=== PATIENT | female | born 1985 | race Caucasian/White ===

== ENCOUNTER 2017-07-11 15:28 | Emergency (ER) | payer MEDICAID, OTHER ==
[2017-07-11 15:54] VITALS: O2SAT 99
[2017-07-11 17:05] LABS: RBC URINE 2 /hpf (0-3); TRANSITIONAL EPITHIAL < 1 /hpf (0-3); URINE BACTERIA RARE (<OCC); URINE BILIRUBIN NEGATIVE (NEGATIVE); URINE BLOOD NEGATIVE (NEGATIVE); URINE COLOR Straw (YELLOW); URINE GLUCOSE (UA) 3+ mg/dL (Normal); URINE KETONE NEGATIVE (NEGATIVE); URINE LEUKOCYTE ESTERASE NEG Leu/uL (Negative); URINE PROTEIN NEGATIVE (NEGATIVE); URINE UROBILINOGEN NORMAL mg/dL (0.2-1.0); WBC URINE 2 /hpf (0-5)
--- NOTE | 2017-07-11 17:13 | C.PDOC ---
History Of Present Illness 31 year old female presents to Emergency Department for evaluation of 2 episodes of bright red blood per rectum with bowel movement. Patient reports having rectal pain when wiping. Also complaints of vaginal itching, and discharge for the past week. Notes that she missed her menstrual period this month, supposed to be on 07/02, states she had negative home test. Denies fever, nausea, vomiting, abdominal pain, or any other complaints at this time. Time Seen by Provider: 07/11/17 16:33 Chief Complaint (Nursing): GI Problem History Per: Patient History/Exam Limitations: no limitations Onset/Duration Of Symptoms: Days Current Symptoms Are (Timing): Still Present Recent travel outside of the [place]: No Additional History Per: Patient Past Medical History Reviewed: Historical Data, Nursing Documentation, Vital Signs Vital Signs: Last Vital Signs Temp 98.5 F 07/11/17 17:56 Pulse 78 07/11/17 17:56 Resp 18 07/11/17 17:56 BP 103/70 07/11/17 17:56 Pulse Ox 99 07/11/17 18:02 - Medical History PMH: Diabetes Family History: States: Unknown Family Hx - Social History Hx Tobacco Use: No Hx Alcohol Use: No Hx Substance Use: No - Immunization History Hx Tetanus Toxoid Vaccination: No Hx Influenza Vaccination: No Hx Pneumococcal Vaccination: No Review Of Systems Except As Marked, All Systems Reviewed And Found Negative. Constitutional: Negative for: Fever, Chills Cardiovascular: Negative for: Chest Pain, Light Headedness Respiratory: Negative for: Shortness of Breath Gastrointestinal: Positive for: Hematochezia (bright red blood per rectum), Rectal Pain. Negative for: Nausea, Vomiting, Abdominal Pain Genitourinary: Positive for: Vaginal Discharge (vaginal itchiness) Neurological: Negative for: Headache, Dizziness Physical Exam - Physical Exam Appears: Non-toxic, No Acute Distress Skin: Normal Color, Warm, Dry Head: Atraumatic, Normacephalic Eye(s): bilateral: Normal Inspection Oral Mucosa: Moist Neck: Normal ROM, Supple Chest: Symmetrical Cardiovascular: Rhythm Regular, No Murmur Respiratory: Normal Breath Sounds, No Rales, No Rhonchi, No Wheezing Gastrointestinal/Abdominal: Soft, No Tenderness Rectal: Rectal Tone (nomal), No Blood Streaked Stool, Hemorrhoids (non-tender hemorrhoids), No Mass, Other (bright erythema with shiny exterior and patchy border extending from vaginal to rectum ) Pelvic: Vaginal Discharge (white cheesy), Other (bright erythema to labia) Extremity: Normal ROM, No Pedal Edema, No Deformity Neurological/Psych: Oriented x3, Normal Speech, Normal Cognition ED Course And Treatment O2 Sat by Pulse Oximetry: 99 (RA) Pulse Ox Interpretation: Normal Medical Decision Making Medical Decision Making: Plan: * Urinalysis * Chlamydia/GC * stool occult Patient has vulvovaginal candidiasis and rash extending to rectum with erosion to perineum. Bleeding likely from wiping erosions and area. UA and stool occult negative. Patient will get Rx Diflucan. Advise follow up with PCP or hose finisher. Disposition - Disposition Disposition: HOME/ ROUTINE Disposition Time: 17:20 Condition: STABLE Additional Instructions: [place] la medicacin kylah charlene vez, puede repetir en 72 horas si todava tiene s ntomas. [employer] un seguimiento con riojas mdico primario o clnica en 2-5 umaña para kylah evaluacin adicional. Regrese al departamento de emergencia en cualquier momento si los sntomas persisten o empeoran. 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 - Scribe Statement The provider has reviewed the documentation as recorded by the Román Thomas All medical record entries made by the Román were at my direction and personally dictated by me. I have reviewed the chart and agree that the record accurately reflects my personal performance of the history, physical exam, medical decision making, and the department course for this patient. I have also personally directed, reviewed, and agree with the discharge instructions and disposition.
[2017-07-11 17:58] VITALS: BP 103/70; PULSE 78; RESP 18; TEMP 98.5
== END 2017-07-11 17:57 | disposition home or self-care (01) ==
LOC: C.ER 15:28
DX: K64.9 Unspecified hemorrhoids (principal); B37.3 Candidiasis of vulva and vagina
CPT/HCPCS: 81001; 84703; 87491; 87591; 99284; G0328

== ENCOUNTER 2017-09-10 11:08 | Emergency (ER) | payer OTHER ==
[2017-09-10 11:17] VITALS: RESP 20
[2017-09-10 11:49] LABS: BASO % 0.5 % (0.0-2.0); EOS % 0.5 % (0.0-4.0); HEMATOCRIT 38.8 % (34.0-47.0); LYMPH # 1.3 K/uL (1.0-4.3); LYMPH % 19.6 % (20.0-40.0); MEAN CELL VOLUME 80.8 fL (81.0-99.0); MEAN CORPUSCULAR HEMOGLOBIN 28.1 pg (27.0-31.0); MEAN CORPUSCULAR HGB CONC 34.8 g/dL (33.0-37.0); MEAN PLATELET VOLUME 9.3 fL (7.2-11.7); MONO # 0.4 K/uL (0.0-0.8); MONO % 5.4 % (0.0-10.0); RED CELL DISTRIBUTION WIDTH 13.1 % (11.5-14.5); WHITE BLOOD COUNT 6.6 K/uL (4.8-10.8)
--- NOTE | 2017-09-10 12:05 | C.PDOC ---
History Of Present Illness 31-year-old female, (A3, at 6-weeks), presents to the emergency department with complaints of vaginal bleeding for the past week, associated with cramping lower abdominal pain that is radiating to the back. Patient denies nausea/vomiting, fevers, dysuria, change in bowel habits, or any other associated symptoms. No other complaints at this time. Time Seen by Provider: 09/10/17 11:25 Chief Complaint (Nursing): Female Genitourinary History Per: Patient History/Exam Limitations: no limitations Onset/Duration Of Symptoms: Days Current Symptoms Are (Timing): Still Present Severity: Moderate Past Medical History Reviewed: Historical Data, Nursing Documentation, Vital Signs Vital Signs: Last Vital Signs Temp 97.9 F 09/10/17 13:45 Pulse 79 09/10/17 13:45 Resp 20 09/10/17 13:45 BP 117/76 09/10/17 13:45 Pulse Ox 98 09/10/17 14:29 - Medical History PMH: Diabetes Family History: States: No Known Family Hx - Social History Hx Tobacco Use: No Hx Alcohol Use: No Hx Substance Use: No - Immunization History Hx Tetanus Toxoid Vaccination: No Hx Influenza Vaccination: No Hx Pneumococcal Vaccination: No Review Of Systems Except As Marked, All Systems Reviewed And Found Negative. Constitutional: Negative for: Fever Cardiovascular: Negative for: Chest Pain Respiratory: Negative for: Shortness of Breath Gastrointestinal: Positive for: Abdominal Pain Genitourinary: Positive for: Vaginal Bleeding Musculoskeletal: Positive for: Back Pain Physical Exam - Physical Exam Appears: Non-toxic, No Acute Distress Skin: Warm, Dry, No Rash Head: Atraumatic, Normacephalic Eye(s): bilateral: Normal Inspection Nose: Normal Oral Mucosa: Moist Lips: Normal Appearing Neck: Normal ROM Chest: Symmetrical Cardiovascular: Rhythm Regular, No Murmur Respiratory: Normal Breath Sounds, No Accessory Muscle Use Gastrointestinal/Abdominal: Soft, No Tenderness Extremity: Normal ROM Neurological/Psych: Oriented x3, Normal Speech ED Course And Treatment - Laboratory Results Result Diagrams: 09/10/17 11:45 09/10/17 11:45 O2 Sat by Pulse Oximetry: 98 (on RA) Pulse Ox Interpretation: Normal Medical Decision Making Medical Decision Making: Plan: * Type and Screen, Beta HCG * CMP * CBC * Urinalysis * US Pelvis * Reassess and Disposition On re-exam, the patient reports improvement of symptoms. Lungs are CTA, heart is RRR, Abdomen is soft, non-tender and tolerating PO well. Pt is tolerating PO well. Follow up with the medical doctor/clinic within 3-5 days, Return if worsened. Disposition - [facility] Disposition: HOME/ ROUTINE Disposition Time: 14:00 Condition: GOOD Additional Instructions: Follow up with the OBGYN within 1-2 days without fail. Return if worsened. Prescriptions: Nitrofurantoin Macrocrystals [Macrobid] 1 cap PO BID #14 cap Instructions: Threatened Miscarriage (ED) Forms: [employer] (Jordanian), Work Excuse Print Language: PANAMANIAN - Clinical Impression Clinical Impression: Threatened - Scribe Statement The provider has reviewed the documentation as recorded by the Scribe (Marcos Montana) All medical record entries made by the Scribe were at my direction and personally dictated by me. I have reviewed the chart and agree that the record accurately reflects my personal performance of the history, physical exam, medical decision making, and the department course for this patient. I have also personally directed, reviewed, and agree with the discharge instructions and disposition.
[2017-09-10 12:07] LABS: ALB/GLOB RATIO 1.2 (1.0-2.1); ALKALINE PHOSPHATASE 105 U/L (38-126); ALT/SGPT 59 U/L (9-52); AST/SGOT 31 U/L (14-36); BILIRUBIN,TOTAL 0.6 mg/dL (0.2-1.3); BLOOD UREA NITROGEN 5 mg/dL (7-17); CALCIUM 8.5 mg/dl (8.6-10.4); CARBON DIOXIDE 25 mmol/L (22-30); CHLORIDE 96 mmol/L (98-107); GFR AFRICAN-AMERICAN > 60; GLUCOSE,RANDOM 246 mg/dL (65-105); POTASSIUM 3.6 mmol/L (3.6-5.2); SODIUM 133 mmol/L (132-148); TOTAL PROTEIN 8.2 g/dL (6.3-8.3)
[2017-09-10 12:14] LABS: RBC URINE 33 /hpf (0-3); URINE BACTERIA RARE (<OCC); URINE BILIRUBIN NEGATIVE (NEGATIVE); URINE BLOOD 3+ (NEGATIVE); URINE COLOR Yellow (YELLOW); URINE GLUCOSE (UA) 3+ mg/dL (Normal); URINE KETONE NEGATIVE (NEGATIVE); URINE LEUKOCYTE ESTERASE 2+ Leu/uL (Negative); URINE PROTEIN NEGATIVE (NEGATIVE); URINE UROBILINOGEN NORMAL mg/dL (0.2-1.0); WBC URINE 8 /hpf (0-5)
[2017-09-10 13:46] VITALS: BP 117/76; PULSE 79; TEMP 97.9
--- NOTE | 2017-09-10 13:52 | US ---
Indication: , vag bleeding Comparison: 1st trimester ultrasound performed 11/15/15 Technique: Transvaginal pelvic ultrasound. Findings: The uterus measures approximately 7.2 x 3.8 x 4.8 cm. Retroverted. Endometrial thickness measures approximately 1.3 cm. No evidence of intrauterine gestational sac. Fluid and echoes noted within the endometrial canal with evidence of vascularity; correlate clinically for possibility of retained products of conception. The right ovary measures 3.3 x 1.5 x 2.9 cm. The left ovary measures 3.1 x 2.4 x 3.2 cm and contains 2.0 x 1.5 x 1.8 cm cyst. Blood flow was demonstrated to both ovaries. Small free fluid noted adjacent to both ovaries. Impression: No evidence of intrauterine gestational sac. If indeed the patient is based on serum beta HCG values, the sonographic findings represent either: Very early IUP; embryonic demise; ectopic gestation. Follow-up with serial quantitative serum beta HCG measurements and post OBGYN follow-up as clinically indicated, since ectopic gestation cannot be excluded based only on sonographic findings. Fluid and echoes noted within the endometrial canal with evidence of vascularity; correlate clinically for possibility of retained products of conception. Small free fluid noted adjacent to both ovaries.
[2017-09-10 14:02] VITALS: O2SAT 98
== END 2017-09-10 14:30 | disposition home or self-care (01) ==
LOC: C.ER 11:08
DX: O20.0 Threatened abortion (principal); Z3A.01 Less than 8 weeks gestation of pregnancy

== ENCOUNTER 2017-11-12 08:55 | Emergency (ER) | payer OTHER ==
[2017-11-12 09:03] VITALS: BP 138/84; O2SAT 99
[2017-11-12 09:37] LABS: HCG,QUALITATIVE URINE NEGATIVE (NEGATIVE)
[2017-11-12 09:49] LABS: SQUAMOUS EPITHIAL 5 /hpf (0-5); URINE BACTERIA OCC (<OCC); URINE BILIRUBIN NEGATIVE (NEGATIVE); URINE BLOOD 2+ (NEGATIVE); URINE CLARITY Hazy (Clear); URINE COLOR Yellow (YELLOW); URINE GLUCOSE (UA) 3+ mg/dL (Normal); URINE LEUKOCYTE ESTERASE 3+ Leu/uL (Negative); URINE NITRATE POSITIVE (NEGATIVE); URINE PROTEIN 2+ mg/dL (NEGATIVE); URINE UROBILINOGEN NORMAL mg/dL (0.2-1.0)
--- NOTE | 2017-11-12 09:54 | C.PDOC ---
History Of Present Illness 32-year-old female, PMHx includes Diabetes, presents to the emergency department with complaints of dysuria and mild suprapubic pain. Patient has a Hx of UTI's in the past and states this feels similar. Denies fevers, chills, back pain, vaginal bleeding/discharge, nausea/vomiting, or diarrhea. Time Seen by Provider: 11/12/17 09:06 Chief Complaint (Nursing): Female Genitourinary History Per: Patient History/Exam Limitations: no limitations Past Medical History Reviewed: Historical Data, Nursing Documentation, Vital Signs Vital Signs: Last Vital Signs Temp 98.8 F 11/12/17 10:10 Pulse 88 11/12/17 10:10 Resp 18 11/12/17 10:10 BP 138/84 11/12/17 10:10 Pulse Ox 99 11/12/17 10:10 - Medical History PMH: Diabetes Family History: States: No Known Family Hx - Social History Hx Tobacco Use: No Hx Alcohol Use: No Hx Substance Use: No - Immunization History Hx Tetanus Toxoid Vaccination: No Hx Influenza Vaccination: No Hx Pneumococcal Vaccination: No Review Of Systems Except As Marked, All Systems Reviewed And Found Negative. Constitutional: Negative for: Fever, Chills Respiratory: Negative for: Shortness of Breath Gastrointestinal: Negative for: Nausea, Vomiting Genitourinary: Positive for: Dysuria, Pelvic Pain. Negative for: Frequency, Incontinence, Hematuria, Vaginal Discharge, Vaginal Bleeding Musculoskeletal: Negative for: Back Pain Skin: Negative for: Rash Neurological: Negative for: Weakness, Headache, Dizziness Physical Exam - Physical Exam Appears: Non-toxic, No Acute Distress Skin: Normal Color, Warm, Dry, No Rash Head: Normacephalic Oral Mucosa: Moist Neck: Normal ROM Chest: Symmetrical Cardiovascular: Rhythm Regular, No Murmur Respiratory: Normal Breath Sounds, No Accessory Muscle Use Gastrointestinal/Abdominal: Soft, Tenderness (Mild, suprapubic), No Guarding, No Rebound Neurological/Psych: Oriented x3, Normal Speech ED Course And Treatment O2 Sat by Pulse Oximetry: 99 Medical Decision Making Medical Decision Making: Impression 32y/o F with dysuria Plan: * Urine Culture * Urinalysis/HCG * Reassess and Disposition Patients urine reveals (+)nitrates and leukocytes. She will be discharged with Rx for Pyridium, Macrobid and Nitrofurantoin to treat UTI and outpatient f/u with PMD/clinic. Asked to return for any new or worsening symptoms. Disposition Counseled Patient/Family Regarding: Studies Performed, Diagnosis, Need For Followup - Disposition Referrals: [facility] [Outside] Disposition: HOME/ ROUTINE Disposition Time: 09:51 Condition: STABLE Prescriptions: Nitrofurantoin Macrocrystal [Nitrofurantoin] 100 mg PO BID #14 capsule Nitrofurantoin Macrocrystals [Macrobid] 100 mg PO BID #14 cap Phenazopyridine HCl [Pyridium] 200 mg PO TID #9 tablet Phenazopyridine HCl [Pyridium] 200 mg PO TID #9 tablet Instructions: Urinary Tract Infections in Adults Forms: Gen Discharge Inst Kazakh, General Discharge Instructions, Work/School/ Gym Excuse, [employer] (Kazakh) - Clinical Impression Clinical Impression: UTI (urinary tract infection) - Scribe Statement The provider has reviewed the documentation as recorded by the Scribe (Marcos Montana) All medical record entries made by the Scribe were at my direction and personally dictated by me. I have reviewed the chart and agree that the record accurately reflects my personal performance of the history, physical exam, medical decision making, and the department course for this patient. I have also personally directed, reviewed, and agree with the discharge instructions and disposition.
[2017-11-12 10:17] VITALS: PULSE 88; RESP 18; TEMP 98.8
== END 2017-11-12 10:24 | disposition home or self-care (01) ==
LOC: C.ER 08:55
DX: N39.0 Urinary tract infection, site not specified (principal); E11.9 Type 2 diabetes mellitus without complications